=== PATIENT | male | born 1975 | race Caucasian/White ===

== ENCOUNTER → 2024-10-04 | Day surgery (SDC) | payer OTHER ==
[~2024-10-04] VITALS: Ht 190.5 cm; Wt 92.5 kg
[~2024-10-04] MED LIST: ACETAMINOPHEN 100 ML IV ONE; AMANTADINE HCL100 M2 PO; AMBIEN10 M1 PO; AMBIEN10 MG PO; AUGMENTIN 500500 MG PO; Amantadine50 MG/5 ML PO; BUPIVACAINE 0.5% 30 ML IV ONE; Bacitracin Zinc/Neomycin/Pol 0.9 GM PACKET T ONE; Bupivacaine Hydrochloride/Ep2 30 ML VIAL ONE; DEXMEDETOMIDINE HCL 200 MCG/2 ML VIAL IV ONE; Dexamethasone Sodium Phospha 4 MG/ML VIAL IV ONE; FLUTICASON0.05 MG/A1 NAS; GOOD SENSE ALLE10 MG PO; KEPPRA250 MG PO; Lactated Ringer's Solution 1,000 ML IV ONE; Lidocaine Hydrochloride 2% 5 ML SDV IV ONE; Midazolam Hydrochloride 2 MG/2 ML VIAL IV ONE; Ondansetron Hydrochloride 4 MG/2 ML VIAL IV ONE; PROPOFOL 200 MG/20 ML VIAL IV ONE; PROPRANOLOL HCL40 MG PO; PROPRANOLOL1 MG/ML PO; SEVOFLURANE 250 ML BOT INH ONE; TOBREX OPHTH S2.5 ML OPH
[2024-10-04 08:30] VITALS: BP 110/65
[2024-10-04 10:17] VITALS: BP 110/79
[2024-10-04 10:32] VITALS: BP 107/71
[2024-10-04 10:47] VITALS: BP 112/70
[2024-10-04 11:03] VITALS: BP 101/77
[2024-10-04 11:17] VITALS: BP 115/70
== END | disposition home or self-care (01) ==
LOC: SDC 09-30 08:45
PROVIDERS: ATTEND Dentist General Practice
DX: K02.9 Dental caries, unspecified (principal); F41.9 Anxiety disorder, unspecified; E11.9 Type 2 diabetes mellitus without complications; E87.5 Hyperkalemia; G47.00 Insomnia, unspecified; F43.21 Adjustment disorder with depressed mood; R56.9 Unspecified convulsions; F90.9 Attention-deficit hyperactivity disorder, unspecified type; F17.210 Nicotine dependence, cigarettes, uncomplicated; Z98.890 Other specified postprocedural states; Z79.899 Other long term (current) drug therapy